=== PATIENT | female | born 1945 | race Caucasian/White ===

== ENCOUNTER 2017-08-23 06:45 | Day surgery (SDC) | payer OTHER ==
--- NOTE | 2017-08-23 02:08 | GHP ---
[f rep st] PREOP HISTORY AND PHYSICAL DATE OF PLANNED PROCEDURE: Wednesday, August 23, 2017, at 8 a.m. HISTORY OF PRESENTING ILLNESS: This 72-year-old female presented to [facility] in December of 2016 with a chief complaint of severe bunion deformity, bilateral, and hammertoes, 2nd toe s bilateral. These have been progressively getting worse over time. She has tried inserts, change i n shoes, decreased activity, all of which have failed to alleviate her symptoms. At this point, she wants a more definitive approach. She wants the bunions corrected. Currently, the right bunion is w orse than the left. She wanted to get this done 1st. This was scheduled for August 23, 2017. PAST MEDICAL HISTORY: Significant for minor arthritis. She had rheumatic fever at age 11 with no lo ng-term heart problems. She has had minor back pain. MEDICATIONS: She does take diclofenac 75 mg twice daily, Pepcid 20 mg once daily, naproxen on occasi on for pain. ALLERGIES: She has no known drug allergies. SOCIAL HISTORY: She has never used tobacco products. Rare alcohol user. REVIEW OF SYSTEMS: At her preop appointment, she denied any recent changes in her health, including headaches, vision changes, hearing difficulty. She has not had any cardiac arrhythmias, chest pain, shortness of breath, GI distress, neurologic, dermatologic, or other musculoskeletal problems. PHYSICAL EXAM: VASCULAR: Pulses were 2/4 on the dorsal pedal and posterior tibial arteries. Capill alaina refill is less than 5 seconds to digits x10. She has minor varicosities and no edema to either e xtremity. NEUROLOGIC: Sharp, dull, light touch, proprioception all intact and symmetric to the digi yesy level. She shows normal temperature, texture and turgor with normal hair distribution of both ex tremities down to the digital level. She does have a pinch callus plantar medial on the 1st metatars al head bilateral. MUSCULOSKELETAL: A medially deviated 1st metatarsal, laterally deviated hallux b ilateral. Crepitation and pain when placed in a corrected position on both great toes. The 2nd toes are contracted dorsally and starting to override the great toe. The lesser digits 3 and 4 are start ing to under ride the 2nd toe due to the elevation of the 2nd toe secondary to the bunion deformity. X-RAYS: Elevated intermetatarsal hallux abductus angles. She shows a slight elevatus on the oblique radiograph on both feet. The right foot is worse than the left foot as far as the intermetatarsal a ngle. She has an abnormal tibial sesamoid position and an abnormal hallux abductus angle. ASSESSMENT: Hallux valgus deformity, bilateral, right being much worse than left. Hammer digit defo rmity, 2nd toe, severe, bilateral. Minor varus hammertoes 3 and 4, bilateral, but these are currentl y asymptomatic. PLANNED PROCEDURE: 1. Modified Roa bunionectomy with osteotomy screw fixation. 2. Serge osteotomy screw fixation. 3. Extensor tendon lengthening with capsulotomy of the 2nd toes, all this on the right foot. At her preop appointment, we discussed risks and complications including residual pain, delayed heali ng. The patient understood. Consent form was signed. She was given both oral and written postop in structions along with prescription for Percocet #40, one tab p.o. q.4-6 hours p.r.n. pain. She was g iven Phenergan 12.5 mg #30, one tab p.o. q.6h p.r.n. postop to prevent nausea with the narcotics. Yareli johnson will be followed up 3 days postop at [facility]. She was given my personal [facility] phone number postoperatively for any concerns or questions over the weekend. Again, she will be f ollowed up x3 days postop at [facility]. /[id number]/MODL
[2017-08-23] MEDS ORDERED: LR 1,000 ML IV ONE (07:32)
[2017-08-23] MEDS ORDERED: BUPIVACAINE 0.25% 30 ML SDV ONE (07:49)
[2017-08-23] MEDS ORDERED: LIDO/EPI 1% **for epidural** 10 ML SDV ONE (07:50)
[2017-08-23] MEDS ORDERED: LIDOCAINE 1% 300 MG/30 ML SDV ONE (07:50)
[2017-08-23] MEDS ORDERED: ceFAZolin 1 GM/5 ML SYR ONE (07:51)
[2017-08-23] MEDS ORDERED: MIDAZOLAM 2 MG/2 ML VIAL IVP ONE (08:11)
[2017-08-23] MEDS ORDERED: MIDAZOLAM 2 MG/2 ML VIAL ONE (08:15)
--- NOTE | 2017-08-23 08:16 | PDANEPAE ---
ANE History of Present Illness Right foot bunionectomy ANE Past Medical History - Cardiovascular History Hx Hypertension: No Hx Arrhythmias: No Hx Chest Pain: No Hx Coronary Artery / Peripheral Vascular Disease: No Hx CHF / Valvular Disease: No Hx Palpitations: No Cardiovascular History Comment: Hx rheumatic fever - Pulmonary History Hx COPD: No Hx Asthma/Reactive Airway Disease: No Hx Recent Upper Respiratory Infection: No Hx Oxygen in Use at Home: No Hx Sleep Apnea: No Sleep Apnea Screening Result - Last Documented: Negative - Neurologic History Hx Cerebrovascular Accident: No Hx Seizures: No Hx Dementia: No - Endocrine History Hx Diabetes: No Hypothyroid: No Hyperthyroid: No Obesity: no - Renal History Hx Renal Disorders: No - Liver History Hx Hepatic Disorders: No - Neurological & Psychiatric Hx Hx Neurological and Psychiatric Disorders: No - Cancer History Hx Cancer: No - Congenital Disorder History Hx Congenital Disorders: No - GI History GERD: no Hx Gastrointestinal Disorders: No - Chronic Pain History Chronic Pain: No - Surgical History Prior Surgeries: right foot buninectomy 08/15 ANE Review of Systems Review of systems is: negative Review of Systems: - Exercise capacity METS (RN): 6 METS ANE Patient History - Allergies Allergies/Adverse Reactions: fish sauce Adverse Reaction (Mild, Uncoded 08/07/17 11:35) Hives - Home Medications Home medications: home medication list seen and reviewed Home Medications: Aleve PRN 08/07/17 [Last Taken 08/16/17] Diclofenac Sodium DAILY 08/07/17 [Last Taken 08/16/17] Pepcid 20 MG (*) 08/07/17 [Last Taken 08/23/17 05:00] Tums 500MG (*) 08/07/17 [Last Taken 08/21/17] - NPO status NPO Since - Liquids (Date): 08/23/17 NPO Since - Liquids (Time): 05:00 NPO Since - Solids (Date): 08/22/17 NPO Since - Solids (Time): 19:30 - Anes Hx Anes Hx: no prior problems - Smoking Hx Smoking Status: Former smoker - Alcohol Use Alcohol Use: Other (1 to 2 /day) - Family Anes Hx Family Hx Anesthesia Complications: none ANE Labs/Vital Signs - Vital Signs Blood Pressure: 167/97 Heart Rate: 74 Respiratory Rate: 12 O2 Sat (%): 96 Height: 154.94 cm Weight: 61.689 kg ANE Physical Exam - Airway Neck exam: FROM Mallampati Score: Class 2 Mouth exam: normal dental/mouth exam - Pulmonary Pulmonary: no respiratory distress - Cardiovascular Cardiovascular: regular rate and rhythym - ASA Status ASA Status: II ANE Anesthesia Plan Anesthesia Plan: GA with mask Total IV Anesthesia: Yes
[2017-08-23] MEDS ORDERED: LIDO/EPI 2%** Not for Epidural 20 ML MDV ONE (08:25)
[2017-08-23] MEDS ORDERED: PROPOFOL/EMULSION 500 MG/50 ML BOTTLE IV ONE (08:27)
[2017-08-23] MEDS ORDERED: ceFAZolin 2 GM/SWFI 2 GM/20 ML SYR IVP ONE (08:30)
[2017-08-23] MEDS ORDERED: fentaNYL 100 MCG/2 ML INJ ONE (08:56)
[2017-08-23] MEDS ORDERED: PROPOFOL 200 MG/20 ML VIAL ONE ×2 (09:11)
[2017-08-23] MEDS ORDERED: HYDROmorphONE/DILAUDID 1 MG/ML INJ IVP PRN (10:15)
[2017-08-23] MEDS ORDERED: HYDROCODONE/APAP 5/325 TAB PO PRN (10:15)
[2017-08-23] MEDS ORDERED: OXYCODONE/APAP 5/325 TAB PO PRN (10:15)
[2017-08-23] MEDS ORDERED: ONDANSETRON 4 MG/2 ML VIAL IVP PRN (10:15)
[2017-08-23] MEDS ORDERED: fentaNYL 100 MCG/2 ML INJ IVP PRN (10:15)
[2017-08-23] MEDS ORDERED: NALOXONE HCL 0.4 MG/ML INJ IVP PRN (10:15)
[2017-08-23 10:55] VITALS: RESP 17
[2017-08-23 10:59] VITALS: TEMP 97.7
[2017-08-23 11:01] VITALS: PULSE 61; O2SAT 96
[2017-08-23 11:13] VITALS: BP 150/77
--- NOTE | 2017-08-23 12:25 | POSTANESTH ---
Post Anesthetic Evaluation Cardiovascular Status: Normal, Stable Respiratory Status: Normal, Stable Level of Consciousness/Mental Status: Can Participate in Eval Pain Control: Adequate, Prn Tx Ordered Nausea/Vomiting Control: Adequate, Prn Tx Ordered Complications Possibly Related to Anesthesia: None Noted
--- NOTE | 2017-08-27 08:37 | GOP ---
[f rep st] OPERATIVE REPORT DATE OF OPERATION: 08/23/2017 SURGEON: Vincent Frederick DPM ANESTHESIA: IV MAC with IV general anesthesia. ANESTHESIOLOGIST: Farhana Louis MD. PREOPERATIVE DIAGNOSIS: 1. Hallux valgus deformity, right foot. 2. Hammertoe deformity, 2nd toe, right foot. 3. Tailor's bunion on the right foot. POSTOPERATIVE DIAGNOSIS: 1. Hallux valgus deformity, right foot. 2. Hammertoe deformity, 2nd toe, right foot. 3. Tailor's bunion on the right foot. PROCEDURE PERFORMED: 1. Modified Roa bunionectomy with osteotomy screw fixation. 2. Serge osteotomy with screw fixation. 3. Partial 5th metatarsal resection. 4. Hammertoe correction, modified post arthroplasty 2nd toe, right foot. FINDINGS: ESTIMATED BLOOD LOSS: Less than 5 cc. DESCRIPTION OF PROCEDURE: The patient was taken to the operating room, placed in supine position aft er local MAC anesthesia. The right lower extremity was elevated, prepped, and draped in the usual st erile OR fashion achieving a sterile field about the entire distal aspect of the right lower extremit y. The local anesthesia that was utilized was 5 cc of 0.5% Marcaine with epinephrine and 5 cc of 1% lidocaine plain in a Borja type block and another 5 cc of 0.5% Marcaine plain in local infiltrated int o the 2nd digit and along the 5th metatarsophalangeal joint. At this point, attention was directed t o the dorsal aspect of the right great toe joint where approximately 3 inch to 4 inch linear incision was made dorsal to the great toe joint just medial to the extensor hallucis longus tendon. Superfic ial vessels were clamped and Bovied as necessary and care was taken to preserve the neurovascular sta tus to the area. At this point, dissection was carried into the 1st intermetatarsal space where the adductor tendon was identified and released sharply from its attachments into the base of the proxima l phalanx. At this point, the toe could be manually moved into corrected position and the adductor t endon was no longer pulling on the great toe laterally. A dorsal capsular incision was then made fro m the distal 3rd of the metatarsal into the proximal phalanx. The capsule was reflected medially and laterally along with the periosteum of the proximal phalanx as well as a small area on the metatarsa l. A large bony prominence was noted on the medial aspect of the 1st metatarsal head. This was nilda jose antonio utilizing a bone saw. A 0.035 K-wire was then placed through the metaphysis of the metatarsal he ad, orienting the K-wire slightly so that it would plantar flex the metatarsal upon the V or Chevron- type osteotomy. Utilizing this K-wire as an apex for the V or Chevron osteotomy, the osteotomy was c arried out and the metatarsal head was shifted laterally and slightly plantarly. The K-wire was then utilized as a temporary fixation. Utilizing AO technique, a single 2.4 mm OsteoMed screw was placed in a lag technique through the dorsal wing of the metatarsal osteotomy and retrograded back into the metatarsal with excellent compression noted intraoperatively. The K-wire was removed from the opera tive site. Redundant bone was removed medially and rasped smooth along with the metatarsal head. Ap proximately 20% of the cartilage was lost on the metatarsal head due to wear and tear over the years. There was a large dorsal osteophyte on the proximal phalanx. This was removed utilizing a rongeur and rasped smooth utilizing a rotary bur. The area was flushed copiously with dilute antibiotic solu tion. The foot was placed in a weightbearing position and the great toe was still pushing on the 2nd toe. It was deemed necessary to do a secondary osteotomy on the great toe. Attention was directed to the proximal phalanx where an oblique wedge osteotomy was carried out with the apex of the wedge p roximal lateral on the proximal phalanx. This wedge of bone was removed from the operative site. A fracture reduction clamp was utilized to close the osteotomy in this swung the great toe away from th e 2nd toe. Again utilizing AO technique, 2 parallel 2.4 mm OsteoMed screws were placed perpendicular to the osteotomy with excellent compression noted. At this point, the great toe was taken through r leeanna of motion and deemed to be anatomically aligned. There was a nice smooth intraoperative range o f motion to 50 degrees of dorsiflexion from neutral with 10 degrees of plantar flexion. There was a significant amount of redundant joint capsule medially and this was capsulotomized and the capsule wa s thinned slightly medially. After a copious flush, the sesamoidal apparatus was then inspected. Th ere was some minor cartilaginous damage into the tibial sesamoid and into the sesamoidal grooves plan tarly, but the toe did move freely. There was no catching. There was no grinding of the sesamoidal apparatus with dorsiflexion and plantar flexion of the great toe. The capsule was then reapproximate d utilizing 3-0 Vicryl in a simple interrupted suture. The periosteum was reapproximated utilizing 4 -0 Vicryl in a simple interrupted suture. Subcu closure was carried out via 4-0 Vicryl in a horizont al mattress suture and skin closure was carried out via 4-0 Prolene in a running subcuticular stitch. At this point, attention was directed to the 5th metatarsophalangeal joint where an approximately 1 inch linear incision was made over the lateral aspect of the 5th metatarsophalangeal joint. Again, taking care to preserve the neurovascular status to the area. Superficial vessels were clamped and B ovied as necessary. The joint capsule was entered via a single linear incision. The lateral aspect of the 5th metatarsal head was resected utilizing a bone saw and rasped smooth utilizing a rotary bur . The area was reinspected 3 different times for any residual bony prominences and none were noted. The area was flushed copiously with dilute antibiotic solution. The capsule was reapproximated util izing 4-0 Vicryl in a simple interrupted suture. Subcu closure was carried out via 4-0 Vicryl in a s imple interrupted suture and skin closure was carried out via 4-0 Prolene in a running subcuticular s titch. At this point, attention was directed to the hammertoe correction where a linear incision was made dorsally over the 2nd metatarsophalangeal joint, approximately 1-1/2 inches long. This was ext ended in and over to the proximal phalanx. A Z-lengthening was done on the extensor tendon and the d orsal joint capsule was capsulotomized so the toe would move into a plantar flexed position. At this point, the 2nd toe was noted to be approximately double the size of the 3rd and 4th toes. So, it wa s deemed necessary to do a modified post arthroplasty. A linear incision was made over the proximal interphalangeal joint capsule. This capsule was reflected medially and laterally, in the medial and lateral condyles of the head of the proximal phalanx, where an excision of these condyles was done me dially and laterally and these condyles were removed from the operative site. The joint capsule was then re-flushed copiously and reapproximated utilizing 4-0 Vicryl in a simple interrupted suture. At this point, the toe was deemed to be in an adequate linear position parallel to the great toe and de emed to be anatomically aligned. It was taken through a range of motion to be sure that it would sta y in position as well as placed in a weightbearing position intraoperatively. The Z-lengthening tend on was then reapproximated utilizing 4-0 Vicryl in a modified Bartolo-type suture. Subcu closure was carried out via 4-0 Vicryl in a horizontal mattress suture and skin closure was carried out via 4-0 Prolene in a running subcuticular stitch. All the incisions were reinforced with Mastisol and Steri- Strips, Adaptic, 4 x 4, Nanette, and Coban were placed over the foot in gentle compression. Tourniquet was released within 10 minutes. All digits returned to a uniform pink color. The patient went into recovery in a satisfactory state with all vital signs stable. Her prognosis is very good for rapid recovery and she will be followed up x3 days postop at [facility]. COMPLICATIONS: None. DRAINS: No drains were placed into the operative site. /[id number]/MODL
== END 2017-08-23 11:45 | disposition home or self-care (01) ==
LOC: FSGY 06:45
PROVIDERS: ATTEND Podiatrist
PROC: 0QBN0ZZ Excision of Right Metatarsal, Open Approach (ICD-10-PCS; principal; 2017-08-23 08:15)
PROC: 0QBQ0ZZ Excision of Right Toe Phalanx, Open Approach (ICD-10-PCS; principal; 2017-08-23 08:15)
DX: M21.611 Bunion of right foot (principal); M20.41 Other hammer toe(s) (acquired), right foot; M21.612 Bunion of left foot; M20.42 Other hammer toe(s) (acquired), left foot
CPT/HCPCS: C1713; J0690; J2250; J2704; J3010

== ENCOUNTER 2017-09-20 05:48 | Day surgery (SDC) | payer OTHER ==
--- NOTE | 2017-09-19 13:25 | GHP ---
[f rep st] PREOP HISTORY AND PHYSICAL HISTORY OF PRESENT ILLNESS: The patient recently had a surgical procedure done on 08/23/2017, hammertoe and tailor bunion correction done on the right lower extremity. She presented to [facility] wanting to get the left foot done. She has been doing very well postoperatively, healing uneventfully on the right foot, and at this point wants to make sure she gets the similar procedure done on the left foot. She is an extremely healthy, active 72-year-old female, generally in excellent health. She has had no significant medical problems her entire life currently. She has had no prior surgeries, other than the right foot surgery. She has some arthritis in her fingers and toes. She did have rheumatic fever at age 11, with no long-term heart problems. MEDICATIONS: Currently takes Voltaren 75 mg twice daily, Pepcid 20 mg daily, and Aleve 220 mg twice daily p.r.n. arthritis in her hands. ALLERGIES: She has no known drug allergies. SOCIAL HISTORY: She has never used any tobacco products. She denies alcohol use more than 2 ounces per week. FAMILY HISTORY: No family history of unusual foot or health issues. She does have a family history of bunion deformity. REVIEW OF SYSTEMS: She was not having any problems with headaches, vision, hearing, nasal or throat problems. Not having any cardiac arrhythmias, chest pain, shortness of breath, GI distress, neurologic, dermatologic, or other musculoskeletal problems. PHYSICAL EXAM: At her preop appointment. She was alert, oriented. Pulses were 2/4 on the dorsal pedal and posterior tibial arteries. Her capillary refill was less than 5 seconds to all 10 digits. Minimal varicosities and no edema in either extremity. Neurologically, sharp, dull, light touch, proprioception all intact and symmetric to the digital level. She did have some slight swelling. I should make note that from the prior bunion surgery on the right foot, she did have some swelling postoperatively still in the right great toe, but was healing very uneventfully at her preoperative evaluation. On dermatologic evaluation, she had normal temperature, texture, and turgor with normal hair distribution down to the digital level. No nail dystrophy. Generally speaking, her skin was very healthy. On musculoskeletal evaluation, she had normal muscle mass and tone to the anterior, lateral, and posterior leg muscles as well as the intrinsic arch muscles. She has a general splayfoot deformity with a medially deviated 1st metatarsal, laterally deviated hallux, early crossover 2nd toe; this was all in the left foot. The right foot showed the scars from prior surgery, and she is doing again very well; all toes appear to be anatomically aligned, great, 2nd, and 5th toes. Again, she is full weightbearing on that foot currently. IMAGING: X-rays were taken, show elevated intermetatarsal and hallux abductus angles as well as slight subluxation of the metatarsophalangeal joint of the 2nd toe with medial and dorsal deviation of the 2nd toe. ASSESSMENT: 1. Hallux valgus deformity, left. 2. Hammer digit deformity, 2nd toe, left. PLANNED PROCEDURE: 1. Modified Roa bunionectomy with osteotomy screw fixation and probable Serge osteotomy with screw fixation. 2. Extensor tendon lengthening with probable flexor tendon release plantarly and capsulotomy of the proximal interphalangeal joint. At her preop appointment, we discussed risks and complications, including residual pain, delayed healing. Having been through the surgery just a few weeks prior, she understands the risks, complications, and the postoperative course very well. She will be followed up x3 days postop at [facility]. She was given my cell phone number for 24-hour call should she have any problems or questions. Again, the consent form was signed and witnessed, and she was given both oral and written postop instructions as stated. /[id number]/MODL MTDD
[2017-09-20] MEDS ORDERED: LR 1,000 ML IV ONE (06:33)
[2017-09-20] MEDS ORDERED: LIDOCAINE 1% 2 ML INJ ID PRN (06:33)
[2017-09-20] MEDS ORDERED: ceFAZolin 2 GM/DEXTROSE 100 ML IV ONE (06:52)
[2017-09-20] MEDS ORDERED: MIDAZOLAM 2 MG/2 ML VIAL IVP ONE (07:00)
[2017-09-20] MEDS ORDERED: ceFAZolin 2 GM/SWFI 2 GM/20 ML SYR IVP ONE (07:00)
--- NOTE | 2017-09-20 07:03 | PDANEPAE ---
ANE History of Present Illness L foot bunionectomy and hammer toe ANE Past Medical History - Cardiovascular History Hx Hypertension: Yes Hx Arrhythmias: No Hx Chest Pain: No Hx Coronary Artery / Peripheral Vascular Disease: No Hx CHF / Valvular Disease: No Hx Palpitations: No Cardiovascular History Comment: Hx rheumatic fever, BP high at the hospital, usually 117/72 or lower at home - Pulmonary History Hx COPD: No Hx Asthma/Reactive Airway Disease: No Hx Recent Upper Respiratory Infection: No Hx Oxygen in Use at Home: No Hx Sleep Apnea: No Sleep Apnea Screening Result - Last Documented: Negative - Neurologic History Hx Cerebrovascular Accident: No Hx Seizures: No Hx Dementia: No - Endocrine History Hx Diabetes: No - Renal History Hx Renal Disorders: No - Liver History Hx Hepatic Disorders: No - Neurological & Psychiatric Hx Hx Neurological and Psychiatric Disorders: No - Cancer History Hx Cancer: No - Congenital Disorder History Hx Congenital Disorders: No - GI History Hx Gastrointestinal Disorders: No - Chronic Pain History Chronic Pain: No - Surgical History Prior Surgeries: right foot buninectomy 08/15 ANE Review of Systems Review of Systems: - Exercise capacity METS (RN): 6 METS ANE Patient History - Allergies Allergies/Adverse Reactions: fish sauce Adverse Reaction (Mild, Uncoded 08/07/17 11:35) Hives - Home Medications Home medications: home medication list seen and reviewed Home Medications: Aleve PRN 08/07/17 [Last Taken 09/12/17] Diclofenac Sodium DAILY 08/07/17 [Last Taken 09/20/17] Pepcid 20 MG (*) 08/07/17 [Last Taken 09/20/17] Tums 500MG (*) 08/07/17 [Last Taken 09/19/17] - NPO status NPO Status: no food or drink >8 hours NPO Since - Liquids (Date): 09/20/17 NPO Since - Liquids (Time): 04:00 (clears only, no dairy) NPO Since - Solids (Date): 09/19/17 NPO Since - Solids (Time): 18:00 - Anes Hx Anes Hx: no prior problems - Smoking Hx Smoking Status: Former smoker - Alcohol Use Alcohol Use: Rarely - Family Anes Hx Family Anes Hx: none Family Hx Anesthesia Complications: none ANE Labs/Vital Signs - Vital Signs Blood Pressure: 157/96 Heart Rate: 65 Respiratory Rate: 18 O2 Sat (%): 95 Height: 154.94 cm Weight: 61.689 kg ANE Physical Exam - Airway Mallampati Score: Class 2 Mouth exam: normal dental/mouth exam - Pulmonary Pulmonary: no respiratory distress - Cardiovascular Cardiovascular: regular rate and rhythym - ASA Status ASA Status: I ANE Anesthesia Plan Anesthesia Plan: GA with mask Total IV Anesthesia: Yes
[2017-09-20] MEDS ORDERED: LIDOCAINE 1% 300 MG/30 ML SDV ONE (07:07)
[2017-09-20] MEDS ORDERED: BUPIVACAINE 0.25% 30 ML SDV ONE (07:08)
[2017-09-20] MEDS ORDERED: ceFAZolin 1 GM/5 ML SYR ONE (07:09)
[2017-09-20] MEDS ORDERED: LIDO/EPI 1% **for epidural** 30 ML SDV ONE (07:09)
[2017-09-20] MEDS ORDERED: fentaNYL 100 MCG/2 ML INJ ONE (07:23)
[2017-09-20] MEDS ORDERED: PROPOFOL/EMULSION 500 MG/50 ML BOTTLE IV ONE ×2 (07:23→08:16)
[2017-09-20] MEDS ORDERED: LIDOCAINE 2% JELLY 5 ML TUBE ONE (07:33)
[2017-09-20] MEDS ORDERED: DEXAMETHASONE 4 MG/ML VIAL ONE (08:11)
[2017-09-20 10:16] VITALS: BP 152/86; PULSE 59; RESP 14; TEMP 97.7; O2SAT 99
[2017-09-20] MEDS ORDERED: ACETAMINOPHEN 500 MG TAB PO PRN (10:18)
[2017-09-20] MEDS ORDERED: PHENYLEPHRINE HCL 100 MCG/ML SYR IVP PRN (10:18)
[2017-09-20] MEDS ORDERED: ALBUTEROL 3 ML DEYVIAL IH PRN (10:18)
[2017-09-20] MEDS ORDERED: ONDANSETRON 4 MG/2 ML VIAL IVP PRN (10:18)
[2017-09-20] MEDS ORDERED: DEXAMETHASONE 4 MG/ML VIAL IVP PRN (10:18)
[2017-09-20] MEDS ORDERED: HYDROCODONE/APAP 5/325 TAB PO PRN (10:18)
[2017-09-20] MEDS ORDERED: NALOXONE HCL 0.4 MG/ML INJ IVP PRN (10:18)
[2017-09-20] MEDS ORDERED: fentaNYL 100 MCG/2 ML INJ IVP PRN (10:18)
[2017-09-20] MEDS ORDERED: LR 500 ML IV PRN (10:18)
--- NOTE | 2017-09-20 21:15 | GOP ---
[f rep st] OPERATIVE REPORT DATE OF OPERATION: 09/20/2017 SURGEON: Vincent Frederick DPM ANESTHESIA: MAC anesthesia plus a local infiltration of approximately 5 cc of 0.25% Marcaine plain i nfiltrated in a V block to the 2nd toe. A combination of 3 cc of 0.25% Marcaine plain along with 3 c c of 1% lidocaine with epinephrine was utilized in a Borja type block around the great toe joint. ANESTHESIOLOGIST: En Sim MD. PREOPERATIVE DIAGNOSIS: Hallux valgus deformity with hammer digit deformity, 2nd toe, left foot. POSTOPERATIVE DIAGNOSIS: Hallux valgus deformity with hammer digit deformity, 2nd toe, left foot. PROCEDURE PERFORMED: 1. Modified Roa bunionectomy with osteotomy screw fixation. 2. Serge osteotomy with screw fixation. 3. Tenotomy capsulotomy, 2nd toe, left foot. FINDINGS: ESTIMATED BLOOD LOSS: Less than 10 cc. DESCRIPTION OF PROCEDURE: The patient was taken to the operating room, placed in supine position. A fter local MAC anesthesia, the left lower extremity was elevated, prepped and draped in the usual juventino rile OR fashion, achieving a sterile field about the entire distal aspect of the extremity. Attentio n was directed to the dorsal aspect of the great toe where an approximately 4-inch linear incision wa s made medial to the extensor hallucis longus tendon. Dissection was carried down to the level of th e joint capsule, taking care to preserve the neurovascular status to the area. Superficial vessels w ere clamped and bovied as necessary. The 1st intermetatarsal space was entered via sharp and blunt d issection. The adductor tendon was identified and released sharply from the base of the proximal pha lanx and into the sesamoidal apparatus. At this point, I could manually move the toe into a more jonn tomic corrected position. A dorsal capsular incision was then made over the metatarsophalangeal join t, reflecting the capsule medially and laterally along with the distal periosteum of the metatarsal a nd the periosteum at the base of the proximal phalanx. A large bony prominence was noted at the dors al aspect of the joint, which was removed utilizing a bone saw. There was a loose piece of bone and cartilage on the plantar medial aspect of the left great toe joint that was removed from the operativ e site. At this point, there was a small amount of bone removed medially of the 1st metatarsal. This bone wa s slightly enlarged. At this point, a 0.035 K-wire was placed through the metaphysis of the metatars al, orienting the K-wire such that it would slightly plantar flex the metatarsal. At this point, the osteotomy was carried out. The metatarsal was shifted laterally, impacted upon itself and held fast with the same 0.035 K-wire as temporary fixation. Utilizing AO technique, a single 2.4 mm OsteoMed screw was placed through the dorsal wing of the osteotomy with excellent compression noted. Redundan t bone was removed medially and rasped smooth utilizing a rotary bur. The K-wire was removed from th e operative site. At this point, it was deemed necessary to do a secondary procedure, the Serge osteotomy with screw fix ation. The great toe was still pushing toward the 2nd toe and slightly under-riding the 2nd toe. At tention was directed to the proximal phalanx dorsally, where an oblique wedge osteotomy was carried o ut with the apex of the wedge proximal lateral. This wedge of bone was removed from the operative si te and a fracture reduction clamp was used to close the osteotomy, which swung the great toe away fro m the 2nd. The great toe was taken through range of motion, deemed to be anatomically aligned. Util izing AO technique, 2 parallel 2.4 mm OsteoMed screws were placed perpendicular to the osteotomy in t he proximal phalanx with excellent compression noted intraoperatively. The fracture reduction clamp was removed from the operative site. The great toe was taken through range of motion and once again, deemed to be anatomically aligned. The area was flushed copiously with dilute antibiotic solution. Redundant capsule was capsulotomized medially and dorsally. The sesamoids were inspected plantarly on the medial aspect of the great toe. There was some wear an d tear on the cartilage, both on the metatarsal head and the sesamoidal apparatus, but there were a f ew small defects, but they were only about a millimeter or 2 in size, and again the tracking with the correction of the joint, I did not feel like this would be a hindrance for the patient with walking down the road. After a copious flush, the capsule was reanastomosed utilizing 3-0 Vicryl in a simple interrupted suture. Periosteum was reapproximated utilizing 4-0 Vicryl in a simple interrupted sutu re. Subcu closure was carried out via 4-0 Vicryl in a horizontal mattress suture, and skin closure w as carried out via 4-0 Prolene in a horizontal mattress suture. At this point, attention was directed over to the 2nd toe where the hammertoe correction was done. A 1.5 inch linear incision was made over the metatarsophalangeal joint. Dissection was carried down t o the long extensor tendon and the extensor apparatus. This was all released sharply and the tendon was split longitudinally and a Z-lengthening was done over the extensor digitorum longus tendon. The capsule was entered via stab incision dorsally and utilizing a Mendoza elevator, the plantar plate was r eleased plantarly to assure that the toe would remain in an anatomically aligned position. At this p oint, I did a Kelikian test to be sure that the toe would remain in an aligned position, and this was indeed the case. The area was flushed copiously. The capsule was reapproximated utilizing 4-0 Vicr yl in a simple interrupted suture. The extensor tendon was reanastomosed utilizing a modified Bunnel l type suture, and skin closure was carried out via 4-0 Prolene in a simple interrupted and horizonta l mattress suture. A stab incision was made plantarly at the proximal interphalangeal joint where the long flexor tendon was identified and released sharply along with the plantar proximal interphalangeal joint capsule. At this point, the distal toe moved into a dorsiflexing anatomically aligned position. At this point , skin closure was carried out via 4-0 Prolene in a simple interrupted suture on the plantar stab inc ision. Adaptic, 4 x 4, Nanette, and Coban were placed over all incisions with gentle compression. Shukri rniquet was released. All digits immediately returned to uniform pink color with normal capillary re fill. The patient went to recovery in a satisfactory state with all vital signs stable. Her prognosis is very good for rapid recovery. She will be followed up in 3-4 days postop at [facility]. She was given my cell phone number for 24-hour call should she have any pr oblems or questions over the weekend. COMPLICATIONS: There were no complications. DRAINS: No drains were placed into the operative site. /[id number]/MODL
== END 2017-09-20 10:29 | disposition home or self-care (01) ==
LOC: FSGY 05:48
PROVIDERS: ATTEND Podiatrist
PROC: 0QBP0ZZ Excision of Left Metatarsal, Open Approach (ICD-10-PCS; principal; 2017-09-20 07:15)
PROC: 0QSP0ZZ Reposition Left Metatarsal, Open Approach (ICD-10-PCS; principal; 2017-09-20 07:15)
PROC: 0Q8P0ZZ Division of Left Metatarsal, Open Approach (ICD-10-PCS; principal; 2017-09-20 07:15)
DX: M20.12 Hallux valgus (acquired), left foot (principal); M20.42 Other hammer toe(s) (acquired), left foot
CPT/HCPCS: C1713; J0690; J1100; J2250; J2704; J3010

== ENCOUNTER → 2019-01-05 | Outpatient (CLI) | payer OTHER | LOC: FIMAGING 12:37 ==